=== PATIENT | male | born 1975 | race Hispanic/Latino ===

== ENCOUNTER 2021-10-11 18:27 | Emergency (ER) | payer OTHER ==
[~2021-10-11] VITALS: Ht 185.4 cm; Wt 104.3 kg
[~2021-10-11 18:27] MED LIST: ASPI-1197 PO; ATOR10 PO; CLOP75TA14 PO; DAPA10TA PO; EPIN0.3P3 IJ; GLIP5TAB11 PO; LISI5TAB21 PO; METF-445 PO
[2021-10-11] MEDS ORDERED: KETOROLAC 60 MG VIAL (30MG/ML) IVP ONE (19:00)
[2021-10-11] MEDS ORDERED: CYCLOBENZAPRINE HCL 10 MG TABLET PO ONE (19:00)
[2021-10-11] MEDS ORDERED: CYCL10TA16 PO (20:10)
[2021-10-11] MEDS ORDERED: ACET-2247 PO (20:10)
[2021-10-11 20:20] VITALS: BP 133/80
== END 2021-10-11 20:37 | disposition home or self-care (01) ==
LOC: EDH 18:27
DX: S20.211A Contusion of right front wall of thorax, initial encounter (principal); E11.9 Type 2 diabetes mellitus without complications; I10 Essential (primary) hypertension; Z79.82 Long term (current) use of aspirin; Z79.84 Long term (current) use of oral hypoglycemic drugs; Z79.899 Other long term (current) drug therapy; Z90.49 Acquired absence of other specified parts of digestive tract; Z95.5 Presence of coronary angioplasty implant and graft; W18.39XA Other fall on same level, initial encounter; Y93.89 Activity, other specified; Y92.89 Other specified places as the place of occurrence of the external cause; Y99.8 Other external cause status
CPT/HCPCS: 71045; 96374; 99283; J1885